=== PATIENT | male | born 1940 | race Caucasian/White ===

== ENCOUNTER → 2017-01-21 | Outpatient (CLI) | payer MEDICARE, OTHER ==
[~2017-01-21] MED LIST: ASA325 MG PO; HYDROCODONE 5MG/5 MG PO; NORVASC2.5 MG PO; PRAVACHOL20 MG PO; PROTONIX40 MG PO; SENOKOT S1 TAB PO; SYNTHROID100 MCG PO; TYLENOL DPS325 MG PO; ULTRAM DPS50 MG PO
== END | disposition home or self-care (01) ==
LOC: RAD.S 09:39
DX: R13.14 Dysphagia, pharyngoesophageal phase (principal); R05 Cough

== ENCOUNTER → 2017-01-23 | Outpatient (CLI) | payer MEDICARE, OTHER | END | disposition home or self-care (01) | LOC: RAD.S 08:52 | DX: R13.10 Dysphagia, unspecified (principal); K21.9 Gastro-esophageal reflux disease without esophagitis; K44.9 Diaphragmatic hernia without obstruction or gangrene ==